=== PATIENT | female | born 1980 | race African-American/Black ===

== ENCOUNTER 2018-07-18 00:52 | Emergency (ER) | payer MEDICAID ==
[~2018-07-18] VITALS: Ht 167.6 cm; Wt 83.5 kg
[2018-07-18 00:57] VITALS: Ht 167.6 cm; Wt 83.5 kg
[2018-07-18 04:14] LABS: BASOPHIL % 0.7 % (0-2); PLATELET COUNT 487 x10^3mcL (130-400); RED CELL DISTRIBUTION WIDTH 15.1 % (11.5-14.5)
[2018-07-18 04:37] LABS: CALCIUM 8.6 mg/dL (8.5-10.1); CARBON DIOXIDE 25.3 mmol/L (21-32); CHLORIDE SERUM 103 mmol/L (98-107); CREATININE SERUM 0.8 mg/dL (0.6-1.0); GFR1 > 60 mL/min; GLUCOSE SERUM 117 mg/dL (74-106); POTASSIUM SERUM 3.7 mmol/L (3.5-5.1); SODIUM SERUM 136 mmol/L (136-145)
[2018-07-18 04:42] LABS: ALKALINE PHOSPHATASE 73 U/L (46-116); ALT/SGPT 20 U/L (14-59); AST/SGOT 16 U/L (15-37); BILIRUBIN TOTAL 0.33 mg/dL (0.20-1.00); LIPASE 139 IU/L (73-393); TOTAL PROTEIN, SERUM 7.6 g/dL (6.4-8.2)
[2018-07-18 06:50] VITALS: BP 101/70
== END 2018-07-18 06:50 | disposition home or self-care (01) ==
LOC: ED 00:52
PROVIDERS: Emergency Medicine
DX: R11.10 Vomiting, unspecified (principal); R19.7 Diarrhea, unspecified; R10.30 Lower abdominal pain, unspecified; Z98.890 Other specified postprocedural states
CPT/HCPCS: J1885; J2405; J7030

== ENCOUNTER 2018-09-01 00:19 | Emergency (ER) | payer MEDICAID ==
[~2018-09-01] VITALS: Ht 165.1 cm; Wt 83.0 kg
[2018-09-01 00:29] VITALS: Ht 165.1 cm; Wt 83.0 kg
[2018-09-01 01:54] LABS: CALCIUM 8.9 mg/dL (8.5-10.1); CARBON DIOXIDE 25.1 mmol/L (21-32); CHLORIDE SERUM 109 mmol/L (98-107); CREATININE SERUM 0.8 mg/dL (0.6-1.0); GFR1 > 60 mL/min; GLUCOSE SERUM 118 mg/dL (74-106); POTASSIUM SERUM 4.3 mmol/L (3.5-5.1); SODIUM SERUM 142 mmol/L (136-145)
[2018-09-01 01:59] LABS: ALKALINE PHOSPHATASE 61 U/L (46-116); ALT/SGPT 24 U/L (14-59); AST/SGOT 15 U/L (15-37); BILIRUBIN TOTAL 0.33 mg/dL (0.20-1.00); LIPASE 128 IU/L (73-393); TOTAL PROTEIN, SERUM 7.3 g/dL (6.4-8.2)
[2018-09-01 02:00] LABS: ALBUMIN 3.1 g/dL (3.4-5.0)
[2018-09-01 02:44] VITALS: BP 110/57
== END 2018-09-01 02:44 | disposition home or self-care (01) ==
LOC: ED 00:19
PROVIDERS: Emergency Medicine
DX: R11.2 Nausea with vomiting, unspecified (principal); R10.13 Epigastric pain
CPT/HCPCS: J0500; J1885; Q0162

== ENCOUNTER 2018-10-27 08:32 | Emergency (ER) | payer MEDICAID ==
[~2018-10-27] VITALS: Ht 165.1 cm; Wt 83.0 kg
[2018-10-27 08:44] VITALS: Ht 165.1 cm; Wt 83.0 kg
[2018-10-27 12:16] VITALS: BP 111/85
== END 2018-10-27 12:16 | disposition home or self-care (01) ==
LOC: ED 08:32
DX: G43.909 Migraine, unspecified, not intractable, without status migrainosus (principal); R11.2 Nausea with vomiting, unspecified
CPT/HCPCS: J1885; J2765; J7030